=== PATIENT | female | born 1990 | race Caucasian/White ===

== ENCOUNTER → 2020-08-07 10:20 | Outpatient (CLI) | payer BC, SELFPAY ==
[2020-08-08 00:53] LABS: SARS-CoV-2 RNA PCR Negative
== END ==
PROVIDERS: Visit Provider Internal Medicine
DX: R05 Cough (principal); Z20.822 Contact with and (suspected) exposure to COVID-19
CPT/HCPCS: C9803; U0003; U0005

== ENCOUNTER 2025-04-14 15:41 | Outpatient (CLI) | payer BC, SELFPAY ==
--- OUTSIDE RECORDS SUMMARY | 2025-04-14 15:56 | XMS_ITS | Encounter Summary ---
Author Organization [facility] Address [address] [place] [address] Care Team Providers Care Hospital Ward Clerk Name Role Phone Andreea FishmanSESAR Primary Care Provid er Encounter Details Date Type Department Care Team (Late st Contact Info) Description 05/14/2023 [facility] [address] [place] [address] Andreea Fishman FNPSESAR [address] [place] [address] T4 Social History Tobacco Use Types Packs/Day Years Used Date Smoking Tobacco: Never Smokeless Tobacco: Never Comments:non smoker Alcohol Use Standard Drinks/Week Comments Yes 1.7 (1 standard drink = 0.6 oz p ure alcohol) AUDIT-C Answer Date Recorded Frequency of Alcohol Consumption 2-3 times a wee k 10/28/2018 Average Number of Drinks 1 or 2 019 Frequency of Binge Drinking Never 10/10 PHQ-2 Answer Date Recorded Patient Health Questionnaire-2 Score 0 04/30/2023 Education Answer Date Recorded What is the highest level of school you have completed or the highest degree you have received? Bachelor's degree (e.g., BA, AB, BS) 10/28/2018 Comments No Sex and Gender Information Value Date Recorded Sex Assigned at Not on file Legal Sex Female 9:28 PM CDT Gender Identity Female 07/15/2021 6:32 AM CLIENT SERVICE PROFESSIONAL Sexual Orientation Straight 07/15/2021 6: 32 AM CLIENT SERVICE PROFESSIONAL documented as of this encounter Functional Status * RETIRED Are you deaf or do you have serious difficulty hearing Answer Date of Assessment Author Status No 06/16/2020 9:47 AM CLIENT SERVICE PROFESSIONAL Activ e * RETIRED Are you blind or do you have serious difficulty seeing, even when wearing glasses? Answer Date of Assessment Author Status No 06/16/2020 9:47 AM CLIENT SERVICE PROFESSIONAL Activ e * Do you have serious difficulty walking or climbing stairs? Answer Date of Assessment Author Status No 06/16/2020 9:47 AM CLIENT SERVICE PROFESSIONAL Merari Cerrato RN Active * Do you have difficulty dressing or bathing? Answer Date of Assessment Author Status No 06/16/2020 9:47 AM CLIENT SERVICE PROFESSIONAL Merari Cerrato RN Active * Because of a physical, mental, or emotional condition, do you have difficulty doing errands alone such as visiting a doctor's office or shopping? Answer Date of Assessment Author Status No 06/16/2020 9:47 AM CLIENT SERVICE PROFESSIONAL Merari Cerrato RN Active documented as of this encounter Mental Status * Because of a physical, mental, or emotional condition, do you have serious difficulty concentrating, remembering, or making decisions? Answer Entry Date Author Status No 06/16/2020 9:47 AM Merari Abbasi RN Active documented in this encounter Progress Notes * Marissa Cai RN - 05/14/2023 10:46 AM CST FYI NT SERVICE PROFESSIONAL documented in this encounter Plan of Treatment Upcoming Encounters Date Type Department Care Team (Late st Contact Info) Description 01/01/2026 10:20 AM CDT Office Visit [facility] Multispecialty Care - [facility] [address] [facility], [address] [place] [address] Rashid Horton MD [address] [place] [address] documented as of this encounter Visit Diagnoses Not on filedocumented in this encounter Additional Health Concerns Assessment Noted Time PHQ-9 Depression Total Score: 7 04/16/20 21 2:02 PM CLIENT SERVICE PROFESSIONAL documented as of this encounter Care Teams Hospital Ward Clerk Relationship Specialty Start Date End Date Andreea Fishman FNP- [address] [place] [address] PCP - General Nurse Practitioner Family 04/10/23 documented as of this encounter
--- OUTSIDE RECORDS SUMMARY | 2025-04-14 15:56 | XMS_ITS | Encounter Summary ---
Author Organization [facility] Address [address] [place] [address] Care Team Providers Care Plumber Apprentice Name Role Phone Makedabelle Mabel Blue NP Primary Care Provider Krissy Joeng [facility] Primary Care Provider + Andreea Fishman [facility] Primary Care Provid er Encounter Details Date Type Department Care Team (Late st Contact Info) Description 12/24/2017 Abstract [facility] [address] [place] [address] , Generic MD Vijay Social History Tobacco Use Types Packs/Day Years Used Date Smoking Tobacco: Never Assessed Comments Unknown Sex and Gender Information Value Date Recorded Sex Assigned at Not on file Legal Sex Female 9:28 PM CDT Gender Identity Female 07/15/2021 6:32 AM SPOILAGE WORKER Sexual Orientation Straight 07/15/2021 6: 32 AM SPOILAGE WORKER documented as of this encounter Plan of Treatment Upcoming Encounters Date Type Department Care Team (Late st Contact Info) Description 01/01/2026 10:20 AM CDT Office Visit [facility] Multispecialty Care - [address], [address] [place] [phone] Rashid Horton MD [address] [place], [place] [address], [place] [address] documented as of this encounter Visit Diagnoses Not on filedocumented in this encounter Additional Health Concerns Infection Onset Date Last Indicated Resolved Time COVID-19 Rule Out 08/07/2020 08/07/2020 08/14/2020 12:33 AM CDT COVID-19 Rule Out 09/09/2022 09/09/2022 09/09/2022 10:10 AM CDT documented as of this encounter Care Teams Plumber Apprentice Relationship Specialty Start Date End Date Mabel Munoz NP PCP - General NURSE PRACTITIONER 09/22/18 04/17/20 Krissy Oden [facility] PCP - General Nurse Practitioner Family 04/18/20 Andreea Fishman [facility] [address] [place] [address] PCP - General Nurse Practitioner Family 04/10/23 documented as of this encounter
--- OUTSIDE RECORDS SUMMARY | 2025-04-14 15:56 | XMS_ITS | Encounter Summary ---
Author Organization [facility] Address [address] [place] [address] Care Team Providers Care Pension Administrator Name Role Phone Makedabelle Mabel Blue NP Primary Care Provider Krissy Jeong [facility] Primary Care Provider + Andreea Fishman [facility] Primary Care Provid er Encounter Details Date Type Department Care Team (Late st Contact Info) Description 08/19/2017 Abstract [facility] CONVERSION [address] [place] [address] , Generic MD Vijay Social History Tobacco Use Types Packs/Day Years Used Date Smoking Tobacco: Never Assessed Comments Unknown Sex and Gender Information Value Date Recorded Sex Assigned at Not on file Legal Sex Female 9:28 PM CDT Gender Identity Female 07/15/2021 6:32 AM CREDIT AND COLLECTIONS REPRESENTATIVE Sexual Orientation Straight 07/15/2021 6: 32 AM CREDIT AND COLLECTIONS REPRESENTATIVE documented as of this encounter Plan of Treatment Upcoming Encounters Date Type Department Care Team (Late st Contact Info) Description 01/01/2026 10:20 AM CDT Office Visit [facility] Multispecialty Care - [address], [address] [place] [phone] Rashid Horton MD [address] [place], [place] [address], [place] [address] documented as of this encounter Visit Diagnoses Not on filedocumented in this encounter Additional Health Concerns Infection Onset Date Last Indicated Resolved Time COVID-19 Rule Out 08/07/2020 08/07/2020 08/14/2020 12:33 AM CDT COVID-19 Rule Out 09/09/2022 09/09/2022 09/09/2022 10:10 AM CDT documented as of this encounter Care Teams Pension Administrator Relationship Specialty Start Date End Date Mabel Munoz NP PCP - General NURSE PRACTITIONER 09/22/18 04/17/20 Krissy Oden [facility] PCP - General Nurse Practitioner Family 04/18/20 Andreea Fishman [facility] [address] [place] [address] PCP - General Nurse Practitioner Family 04/10/23 documented as of this encounter
--- OUTSIDE RECORDS SUMMARY | 2025-04-14 15:56 | XMS_ITS | Clinical Summary ---
Author Organization [facility] Address [address] [place] [address] Care Team Providers Care Inlayer Name Role Phone Sravanthi Andreea Cotton [facility] Primary Care Provid er Allergies No known active allergies Medications Cholecalciferol (VITAMIN D) 125 MCG (5000 UT) Cap Take 1 tablet by mouth daily. Active Methylcobalamin 5000 MCG SL Tab 3 Active triamcinolone (KENALOG) 0.1 % creamIndications: Psoriasis Apply topically 2 (two) times daily. 45 g 1 3 Active albuterol sulfate HFA 108 (90 Base) MCG/ACT inhalerIndication s:Exercise-induce d asthma ([facility]) Inhale 2 puffs into the lungs every 6 (six) hours as needed for Wheezing. 18 g 3 3 Active fish oil (OMEGA-3 FATTY ACID) 1000 MG Cap capsule Take 1 capsule (1,000 mg total) by mouth 2 (two) times daily. Active Magnesium 100 MG Tab Active Coenzyme Q10 (CO Q 10) 100 MG Cap Act polina ubrogepant (UBRELVY) 100 MG tabletIndications :Migraine without aura, not intractable, without status migrainosus Take 1 tablet (100 mg total) by mouth 2 (two) times daily as needed. Max of 2 tablets (200 mg) in 24 hours 16 tablet 11 4 Active Bacillus Coagulans-Inulin (PROBIOTIC) 1-250 BILLION-MG Cap Activ e clobetasol (TEMOVATE) 0.05 % external solutionIndicatio ns:Psoriasis Apply topically 2 (two) times daily. Apply to scalp areas and around ears twice daily as needed. Rub in and do not rinse. Wash hands thoroughly after use. 50 mL 1 5 Active propranolol (INDERAL) 10 MG tabletIndications :Test anxiety Take 1 tablet (10 mg total) by mouth as needed (for test anxiety). Take 30 minutes prior to test. 10 tablet 5 Active dexmethylphenidat e (FOCALIN) 10 MG Tab tabletIndications :Attention deficit disorder without hyperactivity Take 10 mg IR in the am and half (5 mg) at lunchtime. 45 tablet 5 Active Active Problems Problem Noted Date Diagnosed Date Eczema 04/30/2023 Psoriasis 04/30/2023 06/16/2020 , delivered 06/16/2020 Hx of migraines 11/09/2013 Menorrhagia 04/11/2013 Dysmenorrhea 03/04/2013 Attention deficit disorder without hyperactivity 02/21/2013 Resolved Problems Problem Noted Date Diagnosed Date Resolved Date School physical exam 10/28/2018 020 01/05/2018 04/30/2023 Encounters Date Type Department Care Team Description 03/09/2025 Orders Only [facility] [address] [place], [place] [id number] Gila Riley MD 03/09/2025 Travel 02/21/2025 Telephone [facility] [address] [place] [address] Andreea Fishman, DIRECTOR OF GROUP SALES- FYI from Last 3 Months Immunizations Immunization Administration Dates Next Due Dtap (Generic) 04/10/2020 Fluzone (IIV3, Trivalent, 0. 5 ML Prefilled Syringe) 02/23/2024 Fluzone 6 Months+ Quad (0.5 mL Prefilled Syringe) 04/30/2023 Hepatitis A (Generic) 10/15/2009,10/03/2008 Hepatitis B (Generic: Adult) 09/12/1996,04/11/19 96,02/15/1996 Influenza (Generic) 02/23/2024, 0,01/08/2015,02/18 Influenza Adult (Generic) 04/30/2023,04/2022,02/20/2021,02/17,01/27/2014,02/21/2013 MMR 01/01/1996 MMR (Generic) 06/04/1992 MMR (MMRII) 01/01/1996 Meningococcal Vac A,C,Y,W-135 Sc 01/01/2010 PFIZER COVID-19 (ORIGINAL FO RMULATION, PURPLE CAP) mRNA, LNP-S, PF, 30 MCG/0.3 ML DOSE 06/15/2020,05/25/2020 Polio Ipv (Generic) 01/27/1991 Td (Tenivac) preservative free 11/11/2003 Tdap (Adacel) 04/18/2020 Tdap (Boostrix) 11/06/2017 Tdap (Generic) 04/18/2020, 8,11/06/2017,02/21 Varicella Vaccine 02/22/1998 Family History Medical History Relation Comments None Brother 1 None Brother 2 None Daughter Diabetes Father Type 2 Heart Disease Father Stents and bypas s Hyperlipidemia Father Cancer Mother Melanoma None Son Relation Status Comments Brother 1 Alive Brother 2 Alive Daughter Father Alive Mother Alive Son Alive Social History Tobacco Use Types Packs/Day Years Used Date Smoking Tobacco: Never Smokeless Tobacco: Never Tobacco Cessation:Counseling Given: Yes Comments:non smoker Alcohol Use Standard Drinks/Week Comments Yes 1.7 (1 standard drink = 0.6 oz p ure alcohol) AUDIT-C Answer Date Recorded Frequency of Alcohol Consumption 2-3 times a wee k 10/28/2018 Average Number of Drinks 1 or 2 019 Frequency of Binge Drinking Never 10/10 PHQ-2 Answer Date Recorded Patient Health Questionnaire-2 Score 0 08/29/2024 Education Answer Date Recorded What is the highest level of school you have completed or the highest degree you have received? Bachelor's degree (e.g., BA, AB, BS) 10/28/2018 Comments No Sex and Gender Information Value Date Recorded Sex Assigned at Not on file Legal Sex Female 9:28 PM CDT Gender Identity Female 07/15/2021 6:32 AM BUNDLE SORTER Sexual Orientation Straight 07/15/2021 6: 32 AM BUNDLE SORTER Last Filed Vital Signs Vital Sign Reading Time Taken Comments Blood Pressure 114/75 01/02/2025 10:27 AM CDT Pulse 72 01/02/2025 10:27 AM CDT Temperature 37 C (98.6 F) 08/29/2024 9:46 AM CDT Respiratory Rate 12 01/02/2025 10:27 AM CDT Oxygen Saturation 100% 01/02/2025 10:27 AM CDT Inhaled Oxygen Concentration - - Weight 75.3 kg (166 lb) 01/02/2025 10:27 AM CDT Height 157.5 cm (5' 2) 01/02/2025 10:27 AM CDT Body Mass Index 30.36 01/02/2025 10:27 AM CDT Plan of Treatment Upcoming Encounters Date Type Department Care Team (Late st Contact Info) Description 01/01/2026 10:20 AM CDT Office Visit [facility] Multispecialty Care - [address], [address] [place] [phone] Rashid Horton MD [address] [place] [address] Health Maintenance Due Date Last Done Comments Cervical Cancer Screening Pap Smear (Age 30 to 64) Every 3 Years 1990 Hepatitis C 2008 HPV Vaccines (1 - 3-dose SCDM series) 2017 Cervical Cancer Screening Pap with HPV Testing (Age 30 to 64) Every 5 Years 2020 Cervical Cancer Screening with HPV 2020 Annual Physical 04/30/2024 04/30/2023, 01/03/2021 COVID-19 Vaccine ( season) 2025 06/15/2020, 05/25/2020 Influenza Adult (#1) 2025 02/23/2024, 02/23/2024, 04/30/2023, Additional history exists DTaP, Tdap and Td Vaccines (9 - Td or Tdap) 04/18/2030 04/18/2020, 04/18/2020, 04/10/2020, Additional history exists Hepatitis B Vaccines Completed 09/12/1996, 04/11/1996, 02/15/1996 Hepatitis A Vaccines Completed 10/15/2009, 10/04/19 09 Meningococcal Vaccine Aged Out 01/01/2010 No marianne victorino eligible based on patient's age to complete this topic PHQ-2 (Physician [place]) Completed 08/29/2024 Meningococcal B Vaccine Aged Out No l onger eligible based on patient's age to complete this topic Pneumococcal Vaccine: Pediatrics (0 to 5 Years) and At-Risk Patients (6 to 49 Years) Aged Out No longer eligible based on patient's age to complete this topic RSV Immunizations Under 20 Months Aged Out No longer eligible based on patient's age to complete this topic Insurance [facility] Advance Directives * Full Code (Latest Code Status on File) Date Activated Date Inactivated Comments 06/16/2020 7:45 AM 06/16/2020 12:50 PM * Full Code Date Activated Date Inactivated Comments 06/12/2020 3:15 PM 06/12/2020 6:27 PM Care Teams Inlayer Relationship Specialty Start Date End Date Andreea Fishman FNP-BC [address] [place] [address] PCP - General Nurse Practitioner Family 04/10/23
--- OUTSIDE RECORDS SUMMARY | 2025-04-14 15:56 | XMS_ITS | Encounter Summary ---
Author Organization [facility] Address [address] [place] [address] Care Team Providers Care Director Personal Name Role Phone Krissy Oden [facility] Primary Care Provider + Andreea Fishman [facility] Primary Care Provid er Encounter Details Date Type Department Care Team (Late st Contact Info) Description 05/28/2022 [employer] Message Enc [facility] Medical Group Family & Internal Medicine [address] [address] Gustavo, [facility] Provider Due for routine follow up appt Social History Tobacco Use Types Packs/Day Years [...] Drinking Never 10/10 PHQ-2 Answer Date Recorded PHQ-2 Score - If the patient scores above 3, please move on to questions 3-9 0 04/16/2021 Education Answer Date Recorded What is the highest level of school you have completed or the highest degree you have received? Bachelor's degree (e.g., BA, AB, BS) 10/28/2018 Comments No Sex and Gender Information Value Date Recorded Sex Assigned at Not on file Legal Sex Female 9:28 PM CDT Gender Identity Female 07/15/2021 6:32 AM LAY OUT HELPER Sexual Orientation Straight 07/15/2021 6: 32 AM LAY OUT HELPER documented as of this encounter Functional Status * RETIRED Are you deaf or do you have serious difficulty hearing Answer Date of Assessment Author Status No 06/16/2020 9:47 AM LAY OUT HELPER Activ e * RETIRED Are you blind or do you have serious difficulty seeing, even when wearing glasses? Answer Date of Assessment Author Status No 06/16/2020 9:47 AM LAY OUT HELPER Activ e * Do you have serious difficulty walking or climbing stairs? Answer Date of Assessment Author Status No 06/16/2020 9:47 AM LAY OUT HELPER Merari Cerrato RN Active * Do you have difficulty dressing or bathing? Answer Date of Assessment Author Status No 06/16/2020 9:47 AM Merari Abbasi RN Active * Because of a physical, mental, or emotional condition, do you have difficulty doing errands alone such as visiting a doctor's office or shopping? Answer Date of Assessment Author Status No 06/16/2020 9:47 AM Merari Abbasi RN Active documented as of this encounter Mental Status * Because of a physical, mental, or emotional condition, do you have serious difficulty concentrating, remembering, or making decisions? Answer Entry Date Author Status No 06/16/2020 9:47 AM Merari Abbasi RN Active documented in this encounter Plan of Treatment Upcoming Encounters Date Type Department Care Team (Late st Contact Info) Description 01/01/2026 10:20 AM CDT Office Visit [facility] Multispecialty Care - [facility] [address] [facility], [address] [place] [phone] Rashid Horton MD [address] [place] [address] documented as of this encounter Visit Diagnoses Not on filedocumented in this encounter Additional Health Concerns Infection Onset Date Last Indicated Resolved Time COVID-19 Rule Out 09/09/2022 09/09/2022 09/09/2022 10:10 AM CDT Assessment Noted Time PHQ-9 Depression Total Score: 7 04/16/20 21 2:02 PM LAY OUT HELPER documented as of this encounter Care Teams Director Personal Relationship Specialty Start Date End Date Krissy Oden [facility] PCP - General Nurse Practitioner Family 04/18/20 Andreea Fishman [facility] [address] [place] [address] PCP - General Nurse Practitioner Family 04/10/23 documented as of this encounter
--- OUTSIDE RECORDS SUMMARY | 2025-04-14 15:56 | XMS_ITS | Encounter Summary ---
Author Organization [facility] Address [address] [place] [address] Care Team Providers Care Sales Operations Consultant Name Role Phone Krissy Oden [facility] Primary Care Provider + Andreea Fishman [facility] Primary Care Provid er Encounter Details Date Type Department Care Team (Late st Contact Info) Description 04/07/[address] [address] [facility] Medical Group Family & Internal Medicine [address] [address] Krissy Oden [facility] [address] [place] [address] Letter Social History Tobacco Use Types Packs/Day Years [...] CDT Gender Identity Female 07/15/2021 6:32 AM UPPER SHAPER Sexual Orientation Straight 07/15/2021 6: 32 AM UPPER SHAPER COVID-19 Exposure Response Date Recorded In the last 10 days, have yo u been in contact with someone who was confirmed or suspected to have Coronavirus/COVID-19? No / Unsure 04/01/2022 10:19 AM UPPER SHAPER documented as of this encounter Functional Status * RETIRED Are you deaf or do you have serious difficulty hearing Answer Date of Assessment Author Status No 06/16/2020 9:47 AM UPPER SHAPER Activ e * RETIRED Are you blind or do you have serious difficulty seeing, even when wearing glasses? Answer Date of Assessment Author Status No 06/16/2020 9:47 AM UPPER SHAPER Activ e * Do you have serious difficulty walking or climbing stairs? Answer Date of Assessment Author Status No 06/16/2020 9:47 AM UPPER SHAPER Merari Cerrato RN Active * Do you have difficulty dressing or bathing? Answer Date of Assessment Author Status No 06/16/2020 9:47 AM UPPER SHAPER Merari Cerrato RN Active * Because of a physical, mental, or emotional condition, do you have difficulty doing errands alone such as visiting a doctor's office or shopping? Answer Date of Assessment Author Status No 06/16/2020 9:47 AM UPPER SHAPER Merari Cerrato RN Active documented as of [...] Description 01/01/2026 10:20 AM CDT Office Visit [facility] Multispecialty Care - [address], [address] [place] [phone] Rashid Horton MD [address] [place] [address] documented as of this encounter Visit Diagnoses Not on filedocumented in this encounter Additional Health Concerns Infection Onset Date Last Indicated Resolved Time COVID-19 Rule Out 09/09/2022 09/09/2022 09/09/2022 10:10 AM CDT Assessment Noted Time PHQ-9 Depression Total Score: 7 04/16/20 21 2:02 PM UPPER SHAPER documented as of this encounter Care Teams Sales Operations Consultant Relationship Specialty Start Date End Date Krissy Oden [facility] PCP - General Nurse Practitioner Family 04/18/20 Andreea Fishman [facility] [address] [place] [address] PCP - General Nurse Practitioner Family 04/10/23 documented as of this encounter
--- OUTSIDE RECORDS SUMMARY | 2025-04-14 15:56 | XMS_ITS | Encounter Summary ---
Author Organization [facility] Address [address] [place] [address] Care Team Providers Care Exhibition Carver Name Role Phone Krissy Oden [facility] Primary Care Provider + Andreea Fishman [facility] Primary Care Provid er Encounter Details Date Type Department Care Team (Late st Contact Info) Description 03/23/2022 Jirafe Message Enc [facility] Medical Group Family & Internal Medicine [address] [address] Krissy Oden [facility] [address] [place] [address] Form to fill out Social History Tobacco Use Types Packs/Day Years [...] CDT Gender Identity Female 07/15/2021 6:32 AM DATABASE ADMIN Sexual Orientation Straight 07/15/2021 6: 32 AM DATABASE ADMIN COVID-19 Exposure Response Date Recorded In the last 10 days, have yo u been in contact with someone who was confirmed or suspected to have Coronavirus/COVID-19? No / Unsure 03/20/2022 7:39 AM DATABASE ADMIN documented as of this encounter Functional Status * RETIRED Are you deaf or do you have serious difficulty hearing Answer Date of Assessment Author Status No 06/16/2020 9:47 AM DATABASE ADMIN Activ e * RETIRED Are you blind or do you have serious difficulty seeing, even when wearing glasses? Answer Date of Assessment Author Status No 06/16/2020 9:47 AM DATABASE ADMIN Activ e * Do you have serious difficulty walking or climbing stairs? Answer Date of Assessment Author Status No 06/16/2020 9:47 AM DATABASE ADMIN Merari Cerrato RN Active * Do you have difficulty dressing or bathing? Answer Date of Assessment Author Status No 06/16/2020 9:47 AM DATABASE ADMIN Merari Cerrato RN Active * Because of [...] documented in this encounter Progress Notes * Brynn Olivo RN - 04/08/2022 9:37 AM CST Form emailed & faxed. BASE ADMIN * KrissyVIN Lopez - 04/07/2022 7:12 PM CST Form completed and in folder. BASE ADMIN documented in this encounter Plan of Treatment Upcoming Encounters Date Type Department Care Team (Late st Contact Info) Description 01/01/2026 10:20 AM CDT Office Visit [facility] Medical Group Multispecialty Care - [facility] [address] [facility], [address] [place] [address] Rashid Horton MD [address] [place] [address] documented as of this encounter Visit Diagnoses Not on filedocumented in this encounter Additional Health Concerns Infection Onset Date Last Indicated Resolved Time COVID-19 Rule Out 09/09/2022 09/09/2022 09/09/2022 10:10 AM CDT Assessment Noted Time PHQ-9 Depression Total Score: 7 04/16/20 21 2:02 PM DATABASE ADMIN documented as of this encounter Care Teams Exhibition Carver Relationship Specialty Start Date End Date Krissy Oden FNP-BC PCP - General Nurse Practitioner Family 04/18/20 Andreea Fishman FNP-BC [address] [place] [address] PCP - General Nurse Practitioner Family 04/10/23 documented as of this encounter
--- OUTSIDE RECORDS SUMMARY | 2025-04-14 15:57 | XMS_ITS | Encounter Summary ---
Author Organization [facility] - [facility] Address [address] [place] [address] Care Team Providers Care Supervisor Real Estate Office Name Role Phone LorenzaenedeliaAndreea [facility] Primary Care Provid er Encounter Details Date Type Department Care Team (Late st Contact Info) Description 02/23/2024 [employer] Message Enc [facility] Medical Group Multispecialty Care - [address], [address] [place] [address] [employer], [facility] Provider medication Social History Tobacco Use Types Packs/Day Years [...] Date Recorded Patient Health Questionnaire-2 Score 0 02/22/2024 Education Answer Date Recorded What is the highest level of school you have completed or the highest degree you have received? Bachelor's degree (e.g., BA, AB, BS) 10/28/2018 Comments No Sex and Gender Information Value Date Recorded Sex Assigned at Not on file Legal Sex Female 9:28 PM CDT Gender Identity Female 07/15/2021 6:32 AM SENIOR LIVING ADVISOR Sexual Orientation Straight 07/15/2021 6: 32 AM SENIOR LIVING ADVISOR documented as of this encounter Functional Status * RETIRED Are you deaf or do you have serious difficulty hearing Answer Date of Assessment Author Status No 06/16/2020 9:47 AM SENIOR LIVING ADVISOR Activ e * RETIRED Are you blind or do you have serious difficulty seeing, even when wearing glasses? Answer Date of Assessment Author Status No 06/16/2020 9:47 AM SENIOR LIVING ADVISOR Activ e * Do you have serious difficulty walking or climbing stairs? Answer Date of Assessment Author Status No 06/16/2020 9:47 AM SENIOR LIVING ADVISOR Merari Cerrato RN Active * Do you have difficulty dressing or bathing? Answer Date of Assessment Author Status No 06/16/2020 9:47 AM SENIOR LIVING ADVISOR Merari Cerrato RN Active * Because of a physical, mental, or emotional condition, do you have difficulty doing errands alone such as visiting a doctor's office or shopping? Answer Date of Assessment Author Status No 06/16/2020 9:47 AM SENIOR LIVING ADVISOR Merari Cerrato RN Active documented as of [...] Description 01/01/2026 10:20 AM CDT Office Visit [facility] Medical Group Multispecialty Care - [address], [address] [place] [address] Rashid Horton MD [address] [place] [address] documented as of this encounter Visit Diagnoses Not on filedocumented in this encounter Additional Health Concerns Assessment Noted Time PHQ-9 Depression Total Score: 7 04/16/20 21 2:02 PM SENIOR LIVING ADVISOR documented as of this encounter Care Teams Supervisor Real Estate Office Relationship Specialty Start Date End Date Andreea Fishman, SHAREMILKER- [address] [place] [address] PCP - General Nurse Practitioner Family 04/10/23 documented as of this encounter
--- OUTSIDE RECORDS SUMMARY | 2025-04-14 15:57 | XMS_ITS | Encounter Summary ---
Author Organization [facility] - [facility] Address [address] [place] [address] Care Team Providers Care Flame Cutting Machine Operator Name Role Phone [facility] Primary Care Provid er Encounter Details Date Type Department Care Team (Latest Contact Info) Description 11/15/2024 [employer] Message Enc [facility] Medical Group Multispecialty Care - [facility] [address] [facility], [address] [place] [address] Rashid Horton MD [address] [place] [address] Request Form for Accommodations Social History Tobacco Use Types Packs/Day Years [...] Gender Identity Female 07/15/2021 6:32 AM SENIOR ESCROW OFFICER Sexual Orientation Straight 07/15/2021 6: 32 AM SENIOR ESCROW OFFICER documented as of this encounter Functional Status * RETIRED Are you deaf or do you have serious difficulty hearing Answer Date of Assessment Author Status No 06/16/2020 9:47 AM SENIOR ESCROW OFFICER Activ e * RETIRED Are you blind or do you have serious difficulty seeing, even when wearing glasses? Answer Date of Assessment Author Status No 06/16/2020 9:47 AM SENIOR ESCROW OFFICER Activ e * Do you have serious difficulty walking or climbing stairs? Answer Date of Assessment Author Status No 06/16/2020 9:47 AM Merari Abbasi RN Active * Do you have difficulty [...] Description 01/01/2026 10:20 AM CDT Office Visit [facility] Medical Group Multispecialty Care - [facility] [address] [facility], [address] [place] [phone] Rashid Horton MD [address] [place] [address] documented as of this encounter Visit Diagnoses Not on filedocumented in this encounter Additional Health Concerns Assessment Noted Time PHQ-9 Depression Total Score: 7 04/16/20 21 2:02 PM SENIOR ESCROW OFFICER documented as of this encounter Care Teams Flame Cutting Machine Operator Relationship Specialty Start Date End Date Andreea Fishman FNP- [address] [place] [address] PCP - General Nurse Practitioner Family 04/10/23 documented as of this encounter
--- OUTSIDE RECORDS SUMMARY | 2025-04-14 15:57 | XMS_ITS | Encounter Summary ---
Author Organization [facility] - [facility] Address [address] [place] [address] Care Team Providers Care Fruit Vendor Name Role Phone [facility] Primary Care Provid er Encounter Details Date Type Department Care Team (Late st Contact Info) Description 03/01/2024 [employer] Message Enc [facility] Medical Group Multispecialty Care - [facility] [address] [facility], [address] [place] [address] Rashid oHrton MD [address] [place], [place] [id number] MG Results Social History Tobacco Use Types Packs/Day Years [...] CDT Gender Identity Female 07/15/2021 6:32 AM PLATE FORMER Sexual Orientation Straight 07/15/2021 6: 32 AM PLATE FORMER documented as of this encounter Functional Status * RETIRED Are you deaf or do you have serious difficulty hearing Answer Date of Assessment Author Status No 06/16/2020 9:47 AM PLATE FORMER Activ e * RETIRED Are you blind or do you have serious difficulty seeing, even when wearing glasses? Answer Date of Assessment Author Status No 06/16/2020 9:47 AM PLATE FORMER Activ e * Do you have serious [...] Description 01/01/2026 10:20 AM CDT Office Visit [facility] Medical Group Multispecialty Care - [facility] [address], [address] [place] [id number] Rashid Horton MD [address] [place] [address] documented as of this encounter Visit Diagnoses Not on filedocumented in this encounter Additional Health Concerns Assessment Noted Time PHQ-9 Depression Total Score: 7 04/16/20 21 2:02 PM PLATE FORMER documented as of this encounter Care Teams Fruit Vendor Relationship Specialty Start Date End Date Andreea Fihsman FNP- [address] [place] [address] PCP - General Nurse Practitioner Family 04/10/23 documented as of this encounter
--- OUTSIDE RECORDS SUMMARY | 2025-04-14 15:57 | XMS_ITS | Encounter Summary ---
Author Organization [facility] Address [address] [place] [address] Care Team Providers Care Banana Carrier Name Role Phone Krissy Oden [facility] Primary Care Provider + Andreea Fishman [facility] Primary Care Provid er Encounter Details Date Type Department Care Team (Late st Contact Info) Description 06/19/2021 [employer] Message Enc [facility] Medical Group Family & Internal Medicine [address] [address] [facility] [address] [place] [address] fYI for my record Social History Tobacco Use Types Packs/Day Years [...] CDT Gender Identity Female 07/15/2021 6:32 AM AOC DIRECTOR COMBAT OPERATIONS OFFICER Sexual Orientation Straight 07/15/2021 6: 32 AM AOC DIRECTOR COMBAT OPERATIONS OFFICER documented as of this encounter Functional Status * RETIRED Are you deaf or do you have serious difficulty hearing Answer Date of Assessment Author Status No 06/16/2020 9:47 AM AOC DIRECTOR COMBAT OPERATIONS OFFICER Activ e * RETIRED Are you blind or do you have serious difficulty seeing, even when wearing glasses? Answer Date of Assessment Author Status No 06/16/2020 9:47 AM AOC DIRECTOR COMBAT OPERATIONS OFFICER Activ e * Do you have serious difficulty walking or climbing stairs? Answer Date of Assessment Author Status No 06/16/2020 9:47 AM AOC DIRECTOR COMBAT OPERATIONS OFFICER Merari Cerrato RN Active * Do you have difficulty dressing or bathing? Answer Date of Assessment Author Status No 06/16/2020 9:47 AM AOC DIRECTOR COMBAT OPERATIONS OFFICER Merari Cerrato RN Active * Because of a physical, mental, or emotional condition, do you have difficulty doing errands alone such as visiting a doctor's office or shopping? Answer Date of Assessment Author Status No 06/16/2020 9:47 AM AOC DIRECTOR COMBAT OPERATIONS OFFICER Merari Cerrato RN Active documented as of this encounter Mental Status * Because of a physical, mental, or emotional condition, do you have serious difficulty concentrating, remembering, or making decisions? Answer Entry Date Author Status No 06/16/2020 9:47 AM Merari Abbasi RN Active documented in this encounter Progress Notes * VIN Kohler - 06/20/2021 6:35 AM CST Can this be added somewhere? DIRECTOR COMBAT OPERATIONS OFFICER documented in this encounter Plan of Treatment Upcoming Encounters Date Type Department Care Team (Late st Contact Info) Description 01/01/2026 10:20 AM CDT Office Visit [facility] Medical Group Multispecialty Care - [address] [place] [address] Rashid Horton MD [address] [place] [address] documented as of this encounter Visit Diagnoses Not on filedocumented in this encounter Additional Health Concerns Infection Onset Date Last Indicated Resolved Time COVID-19 Rule Out 09/09/2022 09/09/2022 09/09/2022 10:10 AM CDT Assessment Noted Time PHQ-9 Depression Total Score: 7 04/16/20 21 2:02 PM AOC DIRECTOR COMBAT OPERATIONS OFFICER documented as of this encounter Care Teams Banana Carrier Relationship Specialty Start Date End Date [facility] PCP - General Nurse Practitioner Family 04/18/[address] [facility] [address] [place] [address] PCP - General Nurse Practitioner Family 04/10/23 documented as of this encounter
--- OUTSIDE RECORDS SUMMARY | 2025-04-14 15:57 | XMS_ITS | Encounter Summary ---
Author Organization [facility] Address [address] [place] [address] Care Team Providers Care Resource Conservation Manager Name Role Phone Andreea FishmanSESAR Primary Care Provid er Encounter Details Date Type Department Care Team (Late st Contact Info) Description 10/29/2023 [facility] [address] [place] [address] Andreea Fishman FNP-BC [address] [place] [address] Podiatry request Social History Tobacco Use Types Packs/Day Years [...] Date Recorded Patient Health Questionnaire-2 Score 0 10/27/2023 Education Answer Date Recorded What is the highest level of school you have completed or the highest degree you have received? Bachelor's degree (e.g., BA, AB, BS) 10/28/2018 Comments No Sex and Gender Information Value Date Recorded Sex Assigned at Not on file Legal Sex Female 9:28 PM CDT Gender Identity Female 07/15/2021 6:32 AM IDEA MAN Sexual Orientation Straight 07/15/2021 6: 32 AM IDEA MAN documented as of this encounter Functional Status * RETIRED Are you deaf or do you have serious difficulty hearing Answer Date of Assessment Author Status No 06/16/2020 9:47 AM IDEA MAN Activ e * RETIRED Are you blind or do you have serious difficulty seeing, even when wearing glasses? Answer Date of Assessment Author Status No 06/16/2020 9:47 AM IDEA MAN Activ e * Do you have serious difficulty walking or climbing stairs? Answer Date of Assessment Author Status No 06/16/2020 9:47 AM IDEA MAN Merari Cerrato RN Active * Do you have difficulty dressing or bathing? Answer Date of Assessment Author Status No 06/16/2020 9:47 AM Merari Abbasi RN Active * Because of a physical, mental, or emotional condition, do you have difficulty doing errands alone such as visiting a doctor's office or shopping? Answer Date of Assessment Author Status No 06/16/2020 9:47 AM IDEA MAN Merari Cerrato RN Active documented as of this encounter Mental Status * Because of a physical, mental, or emotional condition, do you have serious difficulty concentrating, remembering, or making decisions? Answer Entry Date Author Status No 06/16/2020 9:47 AM Merari Abbasi RN Active documented in this encounter Progress Notes * Marissa Cai RN - 10/29/2023 1:54 PM CDT Please see note from patient. Can the referral be re-routed? documented in this encounter Plan of Treatment Upcoming Encounters Date Type Department Care Team (Late st Contact Info) Description 01/01/2026 10:20 AM CDT Office Visit [facility] Medical Group Multispecialty Care - [address], [address] [place] [address] Rashid Horton MD [address] [place] [address] documented as of this encounter Visit Diagnoses Not on filedocumented in this encounter Additional Health Concerns Assessment Noted Time PHQ-9 Depression Total Score: 7 04/16/20 21 2:02 PM IDEA MAN documented as of this encounter Care Teams Resource Conservation Manager Relationship Specialty Start Date End Date Andreea Fishman FNP- [address] [place] [address] PCP - General Nurse Practitioner Family 04/10/23 documented as of this encounter
--- OUTSIDE RECORDS SUMMARY | 2025-04-14 15:57 | XMS_ITS | Encounter Summary ---
Author Organization [facility] - [facility] Address [address] [place] [address] Care Team Providers Care Learning Technologist Name Role Phone Andreea Fishman [facility] Primary Care Provid er Encounter Details Date Type Department Care Team (Late st Contact Info) Description 03/07/2024 [email or web address] Message Enc [facility] Medical Group Multispecialty Care - [address], [address] [place] [address] [employer], [facility] Provider Lab results Social History Tobacco Use Types Packs/Day Years [...] CDT Gender Identity Female 07/15/2021 6:32 AM RESIDENTIAL BUILDING INSPECTOR Sexual Orientation Straight 07/15/2021 6: 32 AM RESIDENTIAL BUILDING INSPECTOR documented as of this encounter Functional Status * RETIRED Are you deaf or do you have serious difficulty hearing Answer Date of Assessment Author Status No 06/16/2020 9:47 AM RESIDENTIAL BUILDING INSPECTOR Activ e * RETIRED Are you blind or do you have serious difficulty seeing, even when wearing glasses? Answer Date of Assessment Author Status No 06/16/2020 9:47 AM RESIDENTIAL BUILDING INSPECTOR Activ e * Do you have serious difficulty walking or climbing stairs? Answer Date of Assessment Author Status No 06/16/2020 9:47 AM RESIDENTIAL BUILDING INSPECTOR Merari Cerrato RN Active * Do you have difficulty dressing or bathing? Answer Date of Assessment Author Status No 06/16/2020 9:47 AM Merari Abbasi RN Active * Because of a physical, mental, or emotional condition, do you have difficulty doing errands alone such as visiting a doctor's office or shopping? Answer Date of Assessment Author Status No 06/16/2020 9:47 AM RESIDENTIAL BUILDING INSPECTOR Merari Cerrato RN Active documented as of [...] Description 01/01/2026 10:20 AM CDT Office Visit [facility] Medical Group Multispecialty Care - [address], [address] [place] [address] Rashid Horton MD [address] [place] [address] documented as of this encounter Visit Diagnoses Not on filedocumented in this encounter Additional Health Concerns Assessment Noted Time PHQ-9 Depression Total Score: 7 04/16/20 21 2:02 PM RESIDENTIAL BUILDING INSPECTOR documented as of this encounter Care Teams Learning Technologist Relationship Specialty Start Date End Date Andreea Fishman, SOFTWARE ENGINEERING ASSOCIATE MANAGER- [address] [place] [address] PCP - General Nurse Practitioner Family 04/10/23 documented as of this encounter
--- OUTSIDE RECORDS SUMMARY | 2025-04-14 15:57 | XMS_ITS | Encounter Summary ---
Author Organization [facility] Address [address] [place] [address] Care Team Providers Care Clock And Watch Assembler Name Role Phone Mabel Munoz NP Primary Care Provider Krissy Jeong [facility] Primary Care Provider + Andreea Fishman [facility] Primary Care Provid er Encounter Details Date Type Department Care Team (Late st Contact Info) Description 08/20/2018 RX Orders Only [facility] Family & Internal Medicine [address] [address] Shannan Da Silva MD [address] [place] [address] Social History Tobacco Use Types Packs/Day Years Used Date Smoking Tobacco: Never Assessed Comments Unknown Sex and Gender Information Value Date Recorded Sex Assigned at Not on file Legal Sex Female 9:28 PM CDT Gender Identity Female 07/15/2021 6:32 AM ENVIRONMENTAL ANALYST Sexual Orientation Straight 07/15/2021 6: 32 AM ENVIRONMENTAL ANALYST documented as of this encounter Plan of Treatment Upcoming Encounters Date Type Department Care Team (Late st Contact Info) Description 01/01/2026 10:20 AM CDT [facility] [address] [place] [address] Rashid Horton MD [address] [place] [address] documented as of this encounter Visit Diagnoses Diagnosis Acute non-recurrent maxillary sinusitis- Primary documented in this encounter Additional Health Concerns Infection Onset Date Last Indicated Resolved Time COVID-19 Rule Out 08/07/2020 08/07/2020 08/14/2020 12:33 AM CDT COVID-19 Rule Out 09/09/2022 09/09/2022 09/09/2022 10:10 AM CDT documented as of this encounter Care Teams Clock And Watch Assembler Relationship Specialty Start Date End Date Mabel Munoz NP PCP - General NURSE PRACTITIONER 09/22/18 04/17/20 Krissy Oden ELECTRIC CUTTER OPERATOR- PCP - General Nurse Practitioner Family 04/18/20 Andreea Fishman [facility] [address] [place] [address] PCP - General Nurse Practitioner Family 04/10/23 documented as of this encounter
--- OUTSIDE RECORDS SUMMARY | 2025-04-14 15:57 | XMS_ITS | Encounter Summary ---
Author Organization [facility] - [facility] Address [address] [place] [address] Care Team Providers Care Housing Inspector Name Role Phone Andreea Fishman [facility] Primary Care Provid er Encounter Details Date Type Department Care Team (Late st Contact Info) Description 02/02/2024 [facility] [address] [place] [phone] [facility] Provider [employer] Social History Tobacco Use Types Packs/Day Years [...] Date Recorded Patient Health Questionnaire-2 Score 0 01/29/2024 Education Answer Date Recorded What is the highest level of school you have completed or the highest degree you have received? Bachelor's degree (e.g., BA, AB, BS) 10/28/2018 Comments No Sex and Gender Information Value Date Recorded Sex Assigned at Not on file Legal Sex Female 9:28 PM CDT Gender Identity Female 07/15/2021 6:32 AM IT COORDINATOR Sexual Orientation Straight 07/15/2021 6: 32 AM IT COORDINATOR documented as of this encounter Functional Status * RETIRED Are you deaf or do you have serious difficulty hearing Answer Date of Assessment Author Status No 06/16/2020 9:47 AM IT COORDINATOR Activ e * RETIRED Are you blind or do you have serious difficulty seeing, even when wearing glasses? Answer Date of Assessment Author Status No 06/16/2020 9:47 AM IT COORDINATOR Activ e * Do you have serious difficulty walking or climbing stairs? Answer Date of Assessment Author Status No 06/16/2020 9:47 AM IT COORDINATOR Merari Cerrato RN Active * Do you have difficulty dressing or bathing? Answer Date of Assessment Author Status No 06/16/2020 9:47 AM IT COORDINATOR Merari Cerrato RN Active * Because of a physical, mental, or emotional condition, do you have difficulty doing errands alone such as visiting a doctor's office or shopping? Answer Date of Assessment Author Status No 06/16/2020 9:47 AM IT COORDINATOR Merari Cerrato RN Active documented as of this encounter Mental Status * Because of a physical, mental, or emotional condition, do you have serious difficulty concentrating, remembering, or making decisions? Answer Entry Date Author Status No 06/16/2020 9:47 AM IT COORDINATOR Merari Cerrato RN Active documented in this encounter Plan of Treatment Upcoming Encounters Date Type Department Care Team (Late st Contact Info) Description 01/01/2026 10:20 AM CDT Office Visit [facility] Medical Group Multispecialty Care - [facility] [address], [address] [place] [id number] Rashid Horton MD [address] [place] [address] documented as of this encounter Visit Diagnoses Not on filedocumented in this encounter Additional Health Concerns Assessment Noted Time PHQ-9 Depression Total Score: 7 04/16/20 21 2:02 PM IT COORDINATOR documented as of this encounter Care Teams Housing Inspector Relationship Specialty Start Date End Date Andreea Fishman, ACCOUNT EX[employer]IVE [employer]- [address] [place] [address] PCP - General Nurse Practitioner Family 04/10/23 documented as of this encounter
--- OUTSIDE RECORDS SUMMARY | 2025-04-14 15:57 | XMS_ITS | Encounter Summary ---
Author Organization [facility] Address [address] [place] [address] Care Team Providers Care 3Rd Mate Name Role Phone Andreea FishmanSESAR Primary Care Provid er Encounter Details Date Type Department Care Team (Late st Contact Info) Description 02/19/2024 [facility] [address] [place] [address] Andreea Fishman FNPSESAR [address] [place] [address] Abdominal discomfort Social History Tobacco Use Types Packs/Day Years [...] CDT Gender Identity Female 07/15/2021 6:32 AM HEAD CHEF Sexual Orientation Straight 07/15/2021 6: 32 AM HEAD CHEF documented as of this encounter Functional Status * RETIRED Are you deaf or do you have serious difficulty hearing Answer Date of Assessment Author Status No 06/16/2020 9:47 AM HEAD CHEF Activ e * RETIRED Are you blind or do you have serious difficulty seeing, even when wearing glasses? Answer Date of Assessment Author Status No 06/16/2020 9:47 AM HEAD CHEF Activ e * Do you have serious difficulty walking or climbing stairs? Answer Date of Assessment Author Status No 06/16/2020 9:47 AM HEAD CHEF Merari Cerrato RN Active * Do you have difficulty dressing or bathing? Answer Date of Assessment Author Status No 06/16/2020 9:47 AM HEAD CHEF Merari Cerrato RN Active * Because of a physical, mental, or emotional condition, do you have difficulty doing errands alone such as visiting a doctor's office or shopping? Answer Date of Assessment Author Status No 06/16/2020 9:47 AM HEAD CHEF Merari Cerrato RN Active * Over the past 2 weeks, how often have you been bothered by any of the following problems? Question Answer Date of Assessment Author Status Little interest or pleasure in doing things Not at all 02/22/2024 3:02 PM CDT Luann Velasquez MA Act polina Feeling down, depressed, or hopeless Not at all 02/22/2024 3:02 PM CDT Luann Velasquez MA Active Patient Health Questionnaire-2 Score 0 02/22/2024 3:02 PM CDT Luann Velasquez MA Active documented as of this encounter Mental Status * Because of a physical, mental, or emotional condition, do you have serious difficulty concentrating, remembering, or making decisions? Answer Entry Date Author Status No 06/16/2020 9:47 AM Merari Abbasi RN Active documented in this encounter Progress Notes * Marissa Cai RN - 02/22/2024 12:07 PM CDT See note from patient documented in this encounter Plan of Treatment Upcoming Encounters Date Type Department Care Team (Late st Contact Info) Description 01/01/2026 10:20 AM CDT Office Visit [facility] Medical Group Multispecialty Care - Health system [address], [address] [place] [address] Rashid Horton MD [address] [place] [address] documented as of this encounter Visit Diagnoses Not on filedocumented in this encounter Additional Health Concerns Assessment Noted Time PHQ-9 Depression Total Score: 7 04/16/20 21 2:02 PM HEAD CHEF documented as of this encounter Care Teams 3Rd Mate Relationship Specialty Start Date End Date Andreea Fishman, COMMERCIAL ESTIMATOR- [address] [place] [address] PCP - General Nurse Practitioner Family 04/10/23 documented as of this encounter
--- OUTSIDE RECORDS SUMMARY | 2025-04-14 15:57 | XMS_ITS | Encounter Summary ---
Author Organization [facility] Address [address] [place] [address] Care Team Providers Care Baking Assistant Name Role Phone Andreea FishmanSESAR Primary Care Provid er Encounter Details Date Type Department Care Team (Late st Contact Info) Description 03/09/2024 [facility] [address] [place] [address] Andreea Fishman FNPSESAR [address] [place] [address] TSH Social History Tobacco Use Types Packs/Day Years [...] CDT Gender Identity Female 07/15/2021 6:32 AM MANUFACTURING SUPPORT ENGINEER Sexual Orientation Straight 07/15/2021 6: 32 AM MANUFACTURING SUPPORT ENGINEER documented as of this encounter Functional Status * RETIRED Are you deaf or do you have serious difficulty hearing Answer Date of Assessment Author Status No 06/16/2020 9:47 AM MANUFACTURING SUPPORT ENGINEER Activ e * RETIRED Are you blind or do you have serious difficulty seeing, even when wearing glasses? Answer Date of Assessment Author Status No 06/16/2020 9:47 AM MANUFACTURING SUPPORT ENGINEER Activ e * Do you have serious difficulty walking or climbing stairs? Answer Date of Assessment Author Status No 06/16/2020 9:47 AM MANUFACTURING SUPPORT ENGINEER Merari Cerrato RN Active * Do you have difficulty dressing or bathing? Answer Date of Assessment Author Status No 06/16/2020 9:47 AM MANUFACTURING SUPPORT ENGINEER Merari Cerrato RN Active * Because of a physical, mental, or emotional condition, do you have difficulty doing errands alone such as visiting a doctor's office or shopping? Answer Date of Assessment Author Status No 06/16/2020 9:47 AM MANUFACTURING SUPPORT ENGINEER Merari Cerrato RN Active documented as of this encounter Mental Status * Because of a physical, mental, or emotional condition, do you have serious difficulty concentrating, remembering, or making decisions? Answer Entry Date Author Status No 06/16/2020 9:47 AM Merari Abbasi RN Active documented in this encounter Progress Notes * Marissa Cai RN - 03/09/2024 4:24 PM CDT I believe this is in response to the thyroid labs as you sent her a message on that today documented in this encounter Plan of Treatment Upcoming Encounters Date Type Department Care Team (Late st Contact Info) Description 01/01/2026 10:20 AM CDT Office Visit [facility] Medical Group Multispecialty Care - [address], [address] [facility] [place] [address] Rashid Horton MD [address] [place] [address] documented as of this encounter Visit Diagnoses Not on filedocumented in this encounter Additional Health Concerns Assessment Noted Time PHQ-9 Depression Total Score: 7 04/16/20 21 2:02 PM MANUFACTURING SUPPORT ENGINEER documented as of this encounter Care Teams Baking Assistant Relationship Specialty Start Date End Date Andreea Fishman, MATERNITY FLOOR SUPERVISOR- [address] [place] [address] PCP - General Nurse Practitioner Family 04/10/23 documented as of this encounter
--- OUTSIDE RECORDS SUMMARY | 2025-04-14 15:57 | XMS_ITS | Encounter Summary ---
Author Organization [facility] Address [address] [place] [address] Care Team Providers Care Pot Annealer Name Role Phone Krissy Oden [facility] Primary Care Provider + Andreea Fishman [facility] Primary Care Provid er Encounter Details Date Type Department Care Team (Late st Contact Info) Description 07/31/2020 [employer] Message Enc [facility] Medical Group Family & Internal Medicine [address] [address] Krissy Oden [facility] [address] [place] [address] Other Social History Tobacco Use Types Packs/Day Years Used Date Smoking Tobacco: Never Smokeless Tobacco: Never Alcohol Use Standard Drinks/Week Comments Not Currently 0 (1 standard drink = 0.6 oz pur e alcohol) AUDIT-C Answer Date Recorded Frequency of Alcohol Consumption 2-3 times a wee k 10/28/2018 Average Number of Drinks 1 or 2 019 Frequency of Binge Drinking Never 10/10 Education Answer Date Recorded What is the highest level of school you have completed or the highest degree you have received? Bachelor's degree (e.g., BA, AB, BS) 10/28/2018 Comments No Sex and Gender Information Value Date Recorded Sex Assigned at Not on file Legal Sex Female 9:28 PM CDT Gender Identity Female 07/15/2021 6:32 AM APPLICATION DEVELOPMENT CONSULTANT Sexual Orientation Straight 07/15/2021 6: 32 AM APPLICATION DEVELOPMENT CONSULTANT COVID-19 Exposure Response Date Recorded In the last month, have you been in contact with someone who was confirmed or suspected to have Coronavirus / COVID-19? No / Unsure 07/25/2020 9:46 AM CDT documented as of this encounter Functional Status * RETIRED Are you deaf or do you have serious difficulty hearing Answer Date of Assessment Author Status No 06/16/2020 9:47 AM APPLICATION DEVELOPMENT CONSULTANT Activ e * RETIRED Are you blind or do you have serious difficulty seeing, even when wearing glasses? Answer Date of Assessment Author Status No 06/16/2020 9:47 AM APPLICATION DEVELOPMENT CONSULTANT Activ e * Do you have serious difficulty walking or climbing stairs? Answer Date of Assessment Author Status No 06/16/2020 9:47 AM Merari Abbasi RN Active * Do you have difficulty dressing or bathing? Answer Date of Assessment Author Status No 06/16/2020 9:47 AM APPLICATION DEVELOPMENT CONSULTANT Merari Cerrato RN Active * Because of [...] Progress Notes * Brynn Olivo RN - 07/31/2020 2:35 PM CDT Chart updated with covid vaccines documented in this encounter Plan of Treatment Upcoming Encounters Date Type Department Care Team (Late st Contact Info) Description 01/01/2026 10:20 AM CDT Office Visit [facility] [place] [address] [address], [address] [place] [address] Rashid Horton MD [address] [place] [address] documented as of this encounter Visit Diagnoses Not on filedocumented in this encounter Additional Health Concerns Infection Onset Date Last Indicated Resolved Time COVID-19 Rule Out 08/07/2020 08/07/2020 08/14/2020 12:33 AM CDT COVID-19 Rule Out 09/09/2022 09/09/2022 09/09/2022 10:10 AM CDT documented as of this encounter Care Teams Pot Annealer Relationship Specialty Start Date End Date Krissy Oden [facility]- PCP - General Nurse Practitioner Family 04/18/20 Andreea Fishman [facility]- [address] [place] [address] PCP - General Nurse Practitioner Family 04/10/23 documented as of this encounter
--- OUTSIDE RECORDS SUMMARY | 2025-04-14 15:57 | XMS_ITS | Encounter Summary ---
Author Organization [facility] Address [address] [place] [address] Care Team Providers Care Plastic Die Maker Apprentice Name Role Phone Krissy Oden [facility] Primary Care Provider + Andreea Fishman [facility] Primary Care Provid er Encounter Details Date Type Department Care Team (Late st Contact Info) Description 07/31/2020 [employer] Message Enc [facility] Medical Group Family & Internal Medicine [address] [address] [facility] [address] [place] [address] RE: Other Social History Tobacco Use Types Packs/Day [...] CDT Gender Identity Female 07/15/2021 6:32 AM GANG SUPERVISOR PIPE LINES Sexual Orientation Straight 07/15/2021 6: 32 AM GANG SUPERVISOR PIPE LINES COVID-19 Exposure Response Date Recorded In the last month, have you been in contact with someone who was confirmed or suspected to have Coronavirus / COVID-19? No / Unsure 07/25/2020 9:46 AM CDT documented as of this encounter Functional Status * RETIRED Are you deaf or do you have serious difficulty hearing Answer Date of Assessment Author Status No 06/16/2020 9:47 AM GANG SUPERVISOR PIPE LINES Activ e * RETIRED Are you blind or do you have serious difficulty seeing, even when wearing glasses? Answer Date of Assessment Author Status No 06/16/2020 9:47 AM GANG SUPERVISOR PIPE LINES Activ e * Do you have serious difficulty walking or climbing stairs? Answer Date of Assessment Author Status No 06/16/2020 9:47 AM GANG SUPERVISOR PIPE LINES Merari Cerrato RN Active * Do you have difficulty dressing or bathing? Answer Date of Assessment Author Status No 06/16/2020 9:47 AM GANG SUPERVISOR PIPE LINES Merari Cerrato, DANITZA Active * Because of a physical, mental, [...] Author Status No 06/16/2020 9:47 AM Merari Abbasi, DANITZA Active documented in this encounter Plan of Treatment Upcoming Encounters Date Type Department Care Team (Late st Contact Info) Description 01/01/2026 10:20 AM CDT Office Visit [facility] Medical Group Multispecialty Care - [address], [address] [place] [address] Rashid Horton MD [address] [place] [address] documented as of this encounter Visit Diagnoses Not on filedocumented in this encounter Additional Health Concerns Infection Onset Date Last Indicated Resolved Time COVID-19 Rule Out 08/07/2020 08/07/2020 08/14/2020 12:33 AM CDT COVID-19 Rule Out 09/09/2022 09/09/2022 09/09/2022 10:10 AM CDT documented as of this encounter Care Teams Plastic Die Maker Apprentice Relationship Specialty Start Date End Date Krissy Oden [facility] PCP - General Nurse Practitioner Family 04/18/20 Andreea Fishman [facility] [address] [place] [address] PCP - General Nurse Practitioner Family 04/10/23 documented as of this encounter
[2025-04-14 18:32] LABS: Hematocrit 33.6 % (37.0-47.0); Hemoglobin 11.6 g/dL (12.0-15.0); Immature Granulocyte Percent A 0.4 % (0-0.5); Lymphocytes Absolute Auto 1.94 K/mm3 (0.9-3.2); Mean Corpuscular HGB Conc 34.5 g/dl (32-36); Mean Corpuscular Hemoglobin 30.6 pg (26-34); Mean Corpuscular Volume 88.7 fl (80-100); Nucleated Red Blood Cells Absolute Auto 0.000 K/mm3 (0.0-0.012); Nucleated Red Blood Cells Perc 0.0 % (0.0-0.2); Platelet Count Result 195 k/mm3 (150-375); Red Blood Count 3.79 M/mm3 (4.2-5.4); White Blood Count 9.5 K/mm3 (4.5-10.0)
[2025-04-14 19:13] LABS: Alanine Aminotransferase 35 U/L (6-35); Albumin Level 3.9 g/dL (3.5-5.1); Alkaline Phosphatase 54 U/L (38-126); Anion Gap 3 mmol/L (4-12); Aspartate Amino Transferase 53 U/L (14-36); Bilirubin,Total 0.3 mg/dL (0.2-1.3); Blood Urea Nitrogen 12 mg/dL (7-17); Calcium 8.7 mg/dL (8.4-10.2); Carbon Dioxide 26 mmol/L (22-30); Chloride 103 mmol/L (98-107); Estimated Glomerular Filt Rate > 60; Glucose 85 mg/dL (65-110); Potassium 3.8 mmol/L (3.4-5.0); Sodium 132 mmol/L (137-145); Total Protein 6.8 g/dL (6.3-8.2)
[2025-04-14 19:33] LABS: Free T4 Free Thyroxine 0.69 ng/dL (0.78-2.19)
[2025-04-14 19:38] LABS: Syphilis IgG/IgM Antibody Non-Reactive (Nonreactive)
[2025-04-14 19:43] LABS: Hepatitis B Surface Antigen Negative (Negative)
[2025-04-14 19:50] LABS: Trichomonas Vag PCR NOT DETECTED (NOT DETECTE)
[2025-04-14 19:57] LABS: HIV 1/2 Ab P24 Ag Result Negative (Negative)
[2025-04-15 08:35] LABS: Add Urine Microscopic? YES; Appearance Urine Clear (Clear); Glucose Urine UA Negative (Negative); Leukocyte Esterase Ur 1+ LEU/UL (Negative); Need Manual Microscopic Reviewed; Nitrate Urine Negative (Negative); Non Pathogenic Casts 0-2; Specific Grav Ur 1.016 (1.001-1.035)
== END 2025-04-14 15:42 | disposition home or self-care (01) ==
LOC: ANHGOSHLAB 15:47
PROVIDERS: Visit Provider Advanced Practice Midwife
DX: Z00.00 Encounter for general adult medical examination without abnormal findings (principal); Z36.9 Encounter for antenatal screening, unspecified
CPT/HCPCS: 36415; 80053; 81001; 82306; 84439; 85025; 86593; 86703; 86803; 87340; 87491; 87591; 87661; G0432